=== PATIENT | female | born 1945 | race Caucasian/White ===

== ENCOUNTER 2016-07-08 18:40 | Emergency (ER) | payer OTHER ==
--- NOTE | 2016-07-08 19:34 | DIAGNOSTIC IMAGING REPORT ---
PROCEDURE: CT HEAD WITHOUT CONTRAST INDICATION: Right facial droop and numbness. TECHNIQUE: Noncontrast axial images with sagittal and coronal reformations. COMPARISON: None. FINDINGS: Brain and ventricles are normal. No evidence of an acute process or hemorrhage. Sinuses and mastoids are normal. IMPRESSION: 1. Negative head CT. 2. Findings called to the emergency department for Dr. Shawn Foreman ([address] scans at this facility use dose modulation, iterative reconstruction, and/or weight-based dosing when appropriate to reduce radiation dose to as low as reasonably achievable.
--- NOTE | 2016-07-08 19:37 | DIAGNOSTIC IMAGING REPORT ---
PROCEDURE: XR CHEST 1 VIEW INDICATION: Possible CVA. TECHNIQUE: Portable AP view (19 3 hours). COMPARISON: None. FINDINGS: Allowing for overlying wires and electrodes, lungs are clear. Heart and mediastinum are normal. Thorax is normal. IMPRESSION: 1. Negative chest.
--- NOTE | 2016-07-08 20:47 | ED ORDER SUMMARY ---
..... Patient: HO FREEMAN OrderSheet [facility] VisitID: [id number] [address] [place] [address] 70y, F Registration Date/Time: 07/08/2016 ORDER SHEET Weight: 79.3 kg (stated) Allergies: Amitriptyline HCl, Atenolol, Haldol, Penicillins, Sanctura, Zofran GENERAL ORDERS: CT Head wo Cont Urgent (18:57 07/08/2016 Yari verbal order read back to Kathy GUEVARA) (Ack 18:58 Yari) (19:09 Yari) Chest 1V Urgent (19:24 07/08/2016 Kathy GUEVARA) (Ack 19:27 CHagerty ER Finish Painter) (19:30 CHagerty ER Finish Painter) Furniture Shampooer (Continuous) (19:24 07/08/2016 Kathy GUEVARA) (19:27 CHagerty ER Finish Painter) (19:27 LSullivan R.N.) CBC w Diff Urgent (19:24 07/08/2016 Kathy GUEVARA) (Ack 19:27 CHagerty ER Finish Painter) (20:10 CHagerty ER Finish Painter) CMP Urgent (19:24 07/08/2016 Kathy GUEVARA) (Ack 19:27 CHagerty ER Finish Painter) (20:09 CHagerty ER Finish Painter) UA-Culture if indicated Urgent (19:24 07/08/2016 Kathy GUEVARA) (Ack 19:27 CHagerty ER Finish Painter) (21:07 EInderbitzen R.N.) PT with INR Urgent (19:24 07/08/2016 Kathy GUEVARA) (Ack 19:27 CHagerty ER Finish Painter) (20:09 CHagerty ER Finish Painter) PTT Urgent (19:24 07/08/2016 Kathy GUEVARA) (Ack 19:27 CHagerty ER Finish Painter) (20:09 CHagerty ER Finish Painter) Amylase Urgent (19:24 07/08/2016 Kathy GUEVARA) (Ack 19:27 CHagerty ER Finish Painter) (20:09 CHagerty ER Finish Painter) Lipase Urgent (19:24 07/08/2016 Kathy GUEVARA) (Ack 19:27 CHagerty ER Finish Painter) (20:09 CHagerty ER Finish Painter) CPK Urgent (19:24 07/08/2016 Kathy GUEVARA) (Ack 19:27 CHagerty ER Finish Painter) (20:09 CHagerty ER Finish Painter) Troponin-I Urgent (19:24 07/08/2016 Kathy GUEVARA) (Ack 19:27 CHagerty ER Finish Painter) (20:09 CHagerty ER Finish Painter) Urine Drug Screen Urgent (19:24 07/08/2016 Kathy GUEVARA) (Ack 19:27 CHagerty ER Finish Painter) (21:07 EInderbitzen R.N.) (Cancelled: Other21:07 EInderbitzen R.N.) Oxygen (2 L/min) (NC) (19:24 07/08/2016 Kathy GUEVARA) (19:27 CHagerty ER Finish Painter) Pulse oximeter (19:24 07/08/2016 Kathy GUEVARA) (19:27 CHagerty ER Finish Painter) EKG - ER Stat (19:24 07/08/2016 Kathy GUEVARA) (19:27 CHagerty ER Finish Painter) MEDICATION ORDERS: IV FLUIDS: IV Saline Lock (19:04 07/08/2016 LSullivan R.N. verbal order read back to Kathy GUEVARA) (19:05 LSullivan R.N.) IV Saline Lock (19:07/08/2016 Kathy GUEVARA) (Cancelled: Duplicate Order19:24 Kathy GUEVARA) ORDER SHEET NOTES: [Electronically signed by Shara Zimmerman R.N. (21:08 07/08/2016)] [Electronically signed by Shawn Foreman MD (09:34 07/13/2016)] [Electronically locked/signed by Shara Zimmerman R.N. (21:08 07/08/2016)]
--- NOTE | 2016-07-08 20:47 | ED NURSING NOTES ---
Clinical Report - Nurses [facility] [address] [place] [address] 07/08/2016 18:42 Patient: HO FREEMAN TRIAGE Triage time 18:59. Chief Complaint: FACIAL DROOP and (on right side, pt states she looked in a mirror, and saw more facial droop on right chin area than usual, from her Parkinsons). --19:03 Sheree Carr R.N. 18:58 07/08/16. BP: 147/73. HR: 65. RR: 18. O2 saturation: 98%. Temp: 97.5 F. Pain level now: 010. --19:03 Sheree Carr R.N. Weight: 79.3 kg stated. Height/Length: 64 inches Per Patient. BMI: 30. --18:58 Sheree Carr R.N. Medications Acyclovir Oral 400 mg, q4hrs while awake. Alendronate Sodium Oral 35mg week. ASA Oral 81 mg, daily. Levothyroxine Sodium Oral 25 mcg, daily. Platea Carbonate Oral (Capsule 150 mg) 1 capsule, TID at mealtimes. Lovastatin Oral 20mg , daily. Omeprazole Oral 20 mg, daily. Oxybutynin Chloride Oral 5 mg, 3x a day. ROPINIRole HCl Oral 3 mg each hs. Wellbutrin Oral 300 mg qAM. --19:32 Shara Zimmerman R.N. Allergies Amitriptyline HCl. Atenolol. Haldol. Penicillins. (does not work ) Sanctura. Zofran. --19:01 Sheree Carr R.N. History Arrived by private vehicle. Historian: patient. Primary physician (Navdeep). This started 25 minutes LOCAL SALES ASSOCIATE to hospital. Treatment LOCAL SALES ASSOCIATE: None. SOCIAL HX: Never smoker. No alcohol use or drug use. FUNCTIONAL ASSESSMENT: Functional assessment: no impairments noted. --19:03 Sheree Carr R.N. PROBLEMS: Bipolar Disorder. Chest Pain. Anxiety Reaction. Heart Disease. Parkinson's Disease. --19:02 Sheree Carr R.N. ADDITIONAL SURGERIES: Adenoidectomy. Appendectomy. Cholecystectomy. Knee Surgery. Oophorectomy. Tonsillectomy. --19:02 Sheree Carr R.N. PHYSICAL ASSESSMENT GENERAL / NEURO / PSYCH: Awake. Oriented X 4. Alert. Appears in no acute distress. Speech normal. Mood/affect normal. Moves all extremities equally. No motor deficit. No sensory deficit. --19:03 Sheree Carr R.N. NURSING PROGRESS NOTES Patient transported to CT by stretcher with tech. (19:03). --19:03 Sheree Carr R.N. 19:04 07/08/2016 Site #1 started via IV in the right antecubital space with an 20g angiocath, with aseptic technique and good blood return; one attempt. Blood drawn: rainbow set. Labeled in the presence of the patient and sent to the lab. Saline lock flushed with 10 mL saline. --19:05 Sheree Carr R.N. 19:05. patient monitor, pulse oximeter and NIBP monitor placed on patient; manager cardiac- Lead II and V1; monitor alarms on. --19:28 Sheree Carr R.N. 19:31 07/08/16. Portable chest x-ray performed. --19:31 Shara Zimmerman R.N. EKG time: (19:40 Jul 08 2016). EKG was performed by a tech and shown to the ED physician. --19:42 Rolando Pantoja 19:45 07/08/16. Cardiac rhythm: normal sinus rhythm. Patient waiting for lab, radiology and CT results. --19:45 Shara Zimmerman R.N. 19:45 07/08/16. BP: 131/65. HR: 63. RR: 18. O2 saturation: 100%. Pain level now 0/10. --19:45 Shara Zimmerman R.N. 20:37 07/08/16. ( MD in to review all test results with patient). --20:37 Shara Zimmerman R.N. DISPOSITION / DISCHARGE 20:49 07/08/2016 Site #1 removed upon discharge. Catheter intact. Bandage applied. --20:49 Shara Zimmerman R.N. 20:49 07/08/16. Cardiac rhythm: normal sinus rhythm. Condition at departure: improved and stable. The goals identified in the patient's plan of care were met. FALL RISK ASSESSMENT: Fall risk assessment completed. No fall risk identified. --20:49 Shara Zimmerman R.N. 20:49 07/08/16. BP: 151/71. HR: 88. RR: 16. O2 saturation: 100%. Temp: 98.0 F. Pain level now 0/10. --20:49 Shara Zimmerman R.N. 21:07 07/08/16. No learning barriers present. Discharge instructions provided and reviewed with the patient. Reviewed medication(s) side effects, precautions, dosing and course information. Prescription(s) given to the patient. Reviewed referral to a primary care physician for followup. Summary of care provided to patient via paper. The patient was discharged home and accompanied by family. She left the Emergency Department ambulatory and via private vehicle. Family member driving. --21:07 Shara Zimmerman R.N. Departure time: 21:Jul 08 2016. --21:07 Shara Zimmerman R.N. Locked/Released at 07/08/2016 21:07 by Shara Zimmerman R.N.
--- NOTE | 2016-07-08 20:47 | ED CLINICAL REPORT ---
Clinical Report - Physicians/Mid Levels [facility] [address] [place] [address] 07/08/2016 18:42 Patient: HO FREEMAN Time Seen: 19:07. Arrived- By ambulance. Historian- patient and EMS personnel. HISTORY OF PRESENT ILLNESS Chief Complaint: FACIAL DROOP. No weakness, numbness, tingling or impaired speech or swallowing. No visual disturbance or recent fall. No difficulty walking. This started today and is still present. It was gradual in onset and has been constant. No dizziness or altered mental status. Usually is alert and oriented X3 and has normal mobility. (She has had right upper dental pain for several days. Her family and friends feel thatshe does not have facial droop so much as swelling of her face.). REVIEW OF SYSTEMS No chills, fever, sweats, calf pain or chest pain. No cough, difficulty breathing, pedal edema, palpitations or abdominal pain. No constipation, diarrhea, nausea, vomiting or urinary problems. No alteration in mental status, head injury, numbness or weakness. No difficulty walking. All systems otherwise negative, except as recorded above. PAST HISTORY Problems: Bipolar Disorder. Chest Pain. Anxiety Reaction. Heart Disease. Parkinson's Disease. Additional Surgeries: Adenoidectomy. Appendectomy. Cholecystectomy. Knee Surgery. Oophorectomy. Tonsillectomy. Medications: Acyclovir Oral 400 mg, q4hrs while awake. Alendronate Sodium Oral 35mg week. ASA Oral 81 mg, daily. Levothyroxine Sodium Oral 25 mcg, daily. Gaastra Carbonate Oral (Capsule 150 mg) 1 capsule, TID at mealtimes. Lovastatin Oral 20mg , daily. Omeprazole Oral 20 mg, daily. Oxybutynin Chloride Oral 5 mg, 3x a day. ROPINIRole HCl Oral 3 mg each hs. Wellbutrin Oral 300 mg qAM. Allergies: Amitriptyline HCl. Atenolol. Haldol. Penicillins. (does not work ) Sanctura. Zofran. SOCIAL HISTORY Never smoker. No alcohol use or drug use. FAMILY HISTORY Denies family medical history. ADDITIONAL NOTES The nursing notes have been reviewed. PHYSICAL EXAM Vital Signs: 07/08/2016 18:58 BP: 147/73. HR: 65. RR: 18. O2 saturation: 98%. Temp: 97.5 F. Pain level now: 0/10. Appearance: Alert. No acute distress. Head: Right cheek: mild swelling. Eyes: Pupils equal, round and reactive to light. ENT: Moderate dental decay with gingival tenderness, induration and swelling (upper right premolars). No gingival fluctuance. Pharynx normal. (exophthalmos). Neck: Normal inspection. Neck supple. No meningeal signs or carotid bruit. CVS: Normal heart rate and rhythm. Heart sounds normal. Respiratory: No respiratory distress. Breath sounds normal. Abdomen: Soft and nontender. No organomegaly. Back: Normal inspection. No CVA tenderness. Skin: Skin warm and dry. Normal skin color. No rash. Normal skin turgor. Extremities: Extremities exhibit normal ROM. No calf tenderness. No lower extremity edema. Neuro: Alert. Oriented X 3. Speech normal. Cranial nerves normal (as tested). No cerebellar findings. (cogwheel rigidity). LABS, X-RAYS, AND EKG EKG: No acute process. Rate: 63. EKG unchanged when compared with prior EKG. (13 Aug 2013). Chest X-ray: Normal Chest X-Ray. CT Head: No acute changes. The study was interpreted contemporaneously by me and discussed with the radiologist. Laboratory Tests: CBC w Diff: (LYDIA: 07/08/2016 18:40) ( MsgRcvd 07/08/2016 19:40) Final results Test Result Flag Units (Reference) WHITE BLOOD COUNT 7.2 K/uL (4.5-11.5) RED BLOOD COUNT 4.36 M/uL (4.00-5.20) HEMOGLOBIN 13.2 gm/dL (12.0-16.0) HEMATOCRIT 39.4 % (36.0-46.0) MEAN CELL VOLUME 90 fL (80-100) MEAN CORPUSCULAR HGB 30 pg (26-34) MEAN CORPUSCULAR HGB CONC 34 g/dL (31-37) RED CELL DISTRIBUTION WIDTH 13.3 % (11.6-14.8) PLATELET COUNT 290 K/uL (150-400) NEUTROPHIL % 65.3 % (50-75) LYMPH % 23.0 L % (25-40) MONO % 7.5 % (3-14) EOSINOPHIL % 2.2 % (0-4) BASOPHIL % 2.0 % (0-2) PT with INR: (LYDIA: 07/08/2016 18:40) ( [facility] Final results Test Result Flag Units (Reference) INR 0.9 (0.8-1.2) Low Intensity Therapy: INR 1.5-2.0 PT range 18.5-23.1Mod.Intensity Therapy: INR 2.0-3.0 PT range 23.1-31.5High Intensity Therapy: INR 2.5-3.5 PT range 27.4-35.5High Intensity Therapy 2: INR 3.0-4.0 PT range 31.5-39.3 APTT 30 SECONDS (24-34) CMP: (LYDIA: 07/08/2016 18:40) ( [facility] [place] 19:49) Final results Test Result Flag Units (Reference) GLUCOSE 94 mg/dL (70-110) BUN 23 H mg/dL (7-18) CREATININE 0.9 mg/dL (0.6-1.3) Estimated GFR >60 mL/min Estimated GFR- >60 mL/min Note: Persistent reduction over 3 months in eGFR<60 mL/min/1.73 m2 defines CKD. Patients with eGFR values>=60 mL/min/1.73 m2 may also have CKD if evidence ofpersistent proteinuria. Additional information may be foundat www.kidney.org. SODIUM 140 mmol/L (136-145) POTASSIUM 4.7 mmol/L (3.5-5.1) CHLORIDE 102 mmol/L (98-107) CARBON DIOXIDE 31 mmol/L (21-32) CALCIUM 9.3 mg/dL (8.5-10.1) TOTAL PROTEIN 7.0 g/dL (6.4-8.2) ALBUMIN 3.5 g/dL (3.3-5.0) BILIRUBIN, TOTAL 0.6 mg/dL (0.0-1.0) ALKALINE PHOSPHATASE 96 U/L (46-116) AST (SGOT) 23 U/L (15-37) ALT (SGPT) 35 U/L (12-78) LIPASE 160 U/L (73-393) AMYLASE 56 U/L (25-115) CPK 68 U/L (24-260) TROPONIN I <0.05 ng/mL (0.00-1.5) TROPONIN REFERENCE RANGE:<0.1 NEGATIVE0.1-1.5 INDETERMINANT>1.5 POSITIVE . CLINICAL IMPRESSION Mild dental pain (with facial swelling). INSTRUCTIONS Warnings: Further evaluation is necessary. GENERAL WARNINGS: Return or contact your physician immediately if your condition worsens or changes unexpectedly, if not improving as expected, or if other problems arise. Your Current Medications: CONTINUE TAKING THE FOLLOWING MEDICATIONS: Acyclovir Oral : 400 mg q4hrs while awake. Alendronate Sodium Oral : 35mg week. ASA Oral : 81 mg daily. Levothyroxine Sodium Oral : 25 mcg daily. Gaastra Carbonate Oral : Capsule 150 mg, 1 capsule TID at mealtimes. Lovastatin Oral : 20mg daily. Omeprazole Oral : 20 mg daily. Oxybutynin Chloride Oral : 5 mg 3x a day. ROPINIRole HCl Oral : 3 mg each hs. Wellbutrin Oral : 300 mg qAM. Prescription Medications: Clindamycin 300 mg: take 1 capsule orally every 6 hours for 7 days. No refills. OTC Medications: Aspirin 325 mg (available over the counter): take 1 orally every 24 hours. Dispense thirty (30). No refills. Follow-up: Follow up with your doctor in five days. Call for the next available appointment. Follow up with a dentist. Call for the next available appointment. Understanding of the discharge instructions verbalized by patient. (Electronically signed by Shawn Foreman MD 07/13/2016 9:34)
--- NOTE | 2016-07-08 20:47 | ED ORDER SUMMARY ---
..... Patient: HO FREEMAN OrderSheet [facility] VisitID: [id number] [address] [place] [address] 70y, F Registration Date/Time: 07/08/2016 ORDER SHEET Weight: 79.3 kg (stated) Allergies: Amitriptyline HCl, Atenolol, Haldol, Penicillins, Sanctura, Zofran GENERAL ORDERS: CT Head wo Cont Urgent (18:57 07/08/2016 Yari verbal order read back to Kathy GUEVARA) (Ack 18:58 Yari) (19:09 Yari) Chest 1V Urgent (19:24 07/08/2016 Kathy GUEVARA) (Ack 19:27 CHagerty ER Field Operations Farm Manager) (19:30 CHagerty ER Field Operations Farm Manager) Sail Cutter (Continuous) (19:24 07/08/2016 Kathy GUEVARA) (19:27 CHagerty ER Field Operations Farm Manager) (19:27 LSullivan R.N.) CBC w Diff Urgent (19:24 07/08/2016 Kathy GUEVARA) (Ack 19:27 CHagerty ER Field Operations Farm Manager) (20:10 CHagerty ER Field Operations Farm Manager) CMP Urgent (19:24 07/08/2016 Kathy GUEVARA) (Ack 19:27 CHagerty ER Field Operations Farm Manager) (20:09 CHagerty ER Field Operations Farm Manager) UA-Culture if indicated Urgent (19:24 07/08/2016 Kathy GUEVARA) (Ack 19:27 CHagerty ER Field Operations Farm Manager) (21:07 EInderbitzen R.N.) PT with INR Urgent (19:24 07/08/2016 Kathy GUEVARA) (Ack 19:27 CHagerty ER Field Operations Farm Manager) (20:09 CHagerty ER Field Operations Farm Manager) PTT Urgent (19:24 07/08/2016 Kathy GUEVARA) (Ack 19:27 CHagerty ER Field Operations Farm Manager) (20:09 CHagerty ER Field Operations Farm Manager) Amylase Urgent (19:24 07/08/2016 Kathy GUEVARA) (Ack 19:27 CHagerty ER Field Operations Farm Manager) (20:09 CHagerty ER Field Operations Farm Manager) Lipase Urgent (19:24 07/08/2016 Kathy GUEVARA) (Ack 19:27 CHagerty ER Field Operations Farm Manager) (20:09 CHagerty ER Field Operations Farm Manager) CPK Urgent (19:24 07/08/2016 Kathy GUEVARA) (Ack 19:27 CHagerty ER Field Operations Farm Manager) (20:09 CHagerty ER Field Operations Farm Manager) Troponin-I Urgent (19:24 07/08/2016 Kathy GUEVARA) (Ack 19:27 CHagerty ER Field Operations Farm Manager) (20:09 CHagerty ER Field Operations Farm Manager) Urine Drug Screen Urgent (19:24 07/08/2016 Kathy GUEVARA) (Ack 19:27 CHagerty ER Field Operations Farm Manager) (21:07 EInderbitzen R.N.) (Cancelled: Other21:07 EInderbitzen R.N.) Oxygen (2 L/min) (NC) (19:24 07/08/2016 Kathy GUEVARA) (19:27 CHagerty ER Field Operations Farm Manager) Pulse oximeter (19:24 07/08/2016 Kathy GUEVARA) (19:27 CHagerty ER Field Operations Farm Manager) EKG - ER Stat (19:24 07/08/2016 Kathy GUEVARA) (19:27 CHagerty ER Field Operations Farm Manager) MEDICATION ORDERS: IV FLUIDS: IV Saline Lock (19:04 07/08/2016 LSullivan R.N. verbal order read back to Kathy GUEVARA) (19:05 LSullivan R.N.) IV Saline Lock (19:07/08/2016 Kathy GUEVARA) (Cancelled: Duplicate Order19:24 Kathy GUEVARA) ORDER SHEET NOTES: [Electronically signed by Shara Zimmerman R.N. (21:08 07/08/2016)] [Electronically signed by Shawn Foreman MD (09:34 07/13/2016)] [Electronically locked/signed by Shara Zimmerman R.N. (21:08 07/08/2016)]
--- NOTE | 2016-07-08 20:47 | ED CLINICAL REPORT ---
Clinical Report - Physicians/Mid Levels [facility] [address] [place] [address] 07/08/2016 18:42 Patient: HO FREEMAN Time Seen: 19:07. Arrived- By ambulance. Historian- patient and EMS personnel. HISTORY OF PRESENT ILLNESS Chief Complaint: FACIAL DROOP. No weakness, numbness, tingling or impaired speech or swallowing. No visual disturbance or recent fall. No difficulty walking. This started today and is still present. It was gradual in onset and has been constant. No dizziness or altered mental status. Usually is alert and oriented X3 and has normal mobility. (She has had right upper dental pain for several days. Her family and friends feel thatshe does not have facial droop so much as swelling of her face.). REVIEW OF SYSTEMS No chills, fever, sweats, calf pain or chest pain. No cough, difficulty breathing, pedal edema, palpitations or abdominal pain. No constipation, diarrhea, nausea, vomiting or urinary problems. No alteration in mental status, head injury, numbness or weakness. No difficulty walking. All systems otherwise negative, except as recorded above. PAST HISTORY Problems: Bipolar Disorder. Chest Pain. Anxiety Reaction. Heart Disease. Parkinson's Disease. Additional Surgeries: Adenoidectomy. Appendectomy. Cholecystectomy. Knee Surgery. Oophorectomy. Tonsillectomy. Medications: Acyclovir Oral 400 mg, q4hrs while awake. Alendronate Sodium Oral 35mg week. ASA Oral 81 mg, daily. Levothyroxine Sodium Oral 25 mcg, daily. [place] Carbonate Oral (Capsule 150 mg) 1 capsule, TID at mealtimes. Lovastatin Oral 20mg , daily. Omeprazole Oral 20 mg, daily. Oxybutynin Chloride Oral 5 mg, 3x a day. ROPINIRole HCl Oral 3 mg each hs. Wellbutrin Oral 300 mg qAM. Allergies: Amitriptyline HCl. Atenolol. Haldol. Penicillins. (does not work ) Sanctura. Zofran. SOCIAL HISTORY Never smoker. No alcohol use or drug use. FAMILY HISTORY Denies family medical history. ADDITIONAL NOTES The nursing notes have been reviewed. PHYSICAL EXAM Vital Signs: 07/08/2016 18:58 BP: 147/73. HR: 65. RR: 18. O2 saturation: 98%. Temp: 97.5 F. Pain level now: 0/10. Appearance: Alert. No acute distress. Head: Right cheek: mild swelling. Eyes: Pupils equal, round and reactive to light. ENT: Moderate dental decay with gingival tenderness, induration and swelling (upper right premolars). No gingival fluctuance. Pharynx normal. (exophthalmos). Neck: Normal inspection. Neck supple. No meningeal signs or carotid bruit. CVS: Normal heart rate and rhythm. Heart sounds normal. Respiratory: No respiratory distress. Breath sounds normal. Abdomen: Soft and nontender. No organomegaly. Back: Normal inspection. No CVA tenderness. Skin: Skin warm and dry. Normal skin color. No rash. Normal skin turgor. Extremities: Extremities exhibit normal ROM. No calf tenderness. No lower extremity edema. Neuro: Alert. Oriented X 3. Speech normal. Cranial nerves normal (as tested). No cerebellar findings. (cogwheel rigidity). LABS, X-RAYS, AND EKG EKG: No acute process. Rate: 63. EKG unchanged when compared with prior EKG. (13 Aug 2013). Chest X-ray: Normal Chest X-Ray. CT Head: No acute changes. The study was interpreted contemporaneously by me and discussed with the radiologist. Laboratory Tests: CBC w Diff: (LYDAI: 07/08/2016 18:40) ( MsgRcvd 07/08/2016 19:40) Final results Test Result Flag Units (Reference) WHITE BLOOD COUNT 7.2 K/uL (4.5-11.5) RED BLOOD COUNT 4.36 M/uL (4.00-5.20) HEMOGLOBIN 13.2 gm/dL (12.0-16.0) HEMATOCRIT 39.4 % (36.0-46.0) MEAN CELL VOLUME 90 fL (80-100) MEAN CORPUSCULAR HGB 30 pg (26-34) MEAN CORPUSCULAR HGB CONC 34 g/dL (31-37) RED CELL DISTRIBUTION WIDTH 13.3 % (11.6-14.8) PLATELET COUNT 290 K/uL (150-400) NEUTROPHIL % 65.3 % (50-75) LYMPH % 23.0 L % (25-40) MONO % 7.5 % (3-14) EOSINOPHIL % 2.2 % (0-4) BASOPHIL % 2.0 % (0-2) PT with INR: (LYDIA: 07/08/2016 18:40) ( [facility] Final results Test Result Flag Units (Reference) INR 0.9 (0.8-1.2) Low Intensity Therapy: INR 1.5-2.0 PT range 18.5-23.1Mod.Intensity Therapy: INR 2.0-3.0 PT range 23.1-31.5High Intensity Therapy: INR 2.5-3.5 PT range 27.4-35.5High Intensity Therapy 2: INR 3.0-4.0 PT range 31.5-39.3 APTT 30 SECONDS (24-34) CMP: (LYDIA: 07/08/2016 18:40) ( [facility] 07/08/2016 19:49) Final results Test Result Flag Units (Reference) GLUCOSE 94 mg/dL (70-110) BUN 23 H mg/dL (7-18) CREATININE 0.9 mg/dL (0.6-1.3) Estimated GFR >60 mL/min Estimated GFR- >60 mL/min Note: Persistent reduction over 3 months in eGFR<60 mL/min/1.73 m2 defines CKD. Patients with eGFR values>=60 mL/min/1.73 m2 may also have CKD if evidence ofpersistent proteinuria. Additional information may be foundat www.[email or web address].org. SODIUM 140 mmol/L (136-145) POTASSIUM 4.7 mmol/L (3.5-5.1) CHLORIDE 102 mmol/L (98-107) CARBON DIOXIDE 31 mmol/L (21-32) CALCIUM 9.3 mg/dL (8.5-10.1) TOTAL PROTEIN 7.0 g/dL (6.4-8.2) ALBUMIN 3.5 g/dL (3.3-5.0) BILIRUBIN, TOTAL 0.6 mg/dL (0.0-1.0) ALKALINE PHOSPHATASE 96 U/L (46-116) AST (SGOT) 23 U/L (15-37) ALT (SGPT) 35 U/L (12-78) LIPASE 160 U/L (73-393) AMYLASE 56 U/L (25-115) CPK 68 U/L (24-260) TROPONIN I <0.05 ng/mL (0.00-1.5) TROPONIN REFERENCE RANGE:<0.1 NEGATIVE0.1-1.5 INDETERMINANT>1.5 POSITIVE . CLINICAL IMPRESSION Mild dental pain (with facial swelling). INSTRUCTIONS Warnings: Further evaluation is necessary. GENERAL WARNINGS: Return or contact your physician immediately if your condition worsens or changes unexpectedly, if not improving as expected, or if other problems arise. Your Current Medications: CONTINUE TAKING THE FOLLOWING MEDICATIONS: Acyclovir Oral : 400 mg q4hrs while awake. Alendronate Sodium Oral : 35mg week. ASA Oral : 81 mg daily. Levothyroxine Sodium Oral : 25 mcg daily. [place] Carbonate Oral : Capsule 150 mg, 1 capsule TID at mealtimes. Lovastatin Oral : 20mg daily. Omeprazole Oral : 20 mg daily. Oxybutynin Chloride Oral : 5 mg 3x a day. ROPINIRole HCl Oral : 3 mg each hs. Wellbutrin Oral : 300 mg qAM. Prescription Medications: Clindamycin 300 mg: take 1 capsule orally every 6 hours for 7 days. No refills. OTC Medications: Aspirin 325 mg (available over the counter): take 1 orally every 24 hours. Dispense thirty (30). No refills. Follow-up: Follow up with your doctor in five days. Call for the next available appointment. Follow up with a dentist. Call for the next available appointment. Understanding of the discharge instructions verbalized by patient. (Electronically signed by Shawn Foreman MD 07/13/2016 9:34)
--- NOTE | 2016-07-08 20:47 | ED NURSING NOTES ---
Clinical Report - Nurses [facility] [address] [place] [address] 07/08/2016 18:42 Patient: HO FREEMAN TRIAGE Triage time 18:59. Chief Complaint: FACIAL DROOP and (on right side, pt states she looked in a mirror, and saw more facial droop on right chin area than usual, from her Parkinsons). --19:03 Sheree Carr R.N. 18:58 07/08/16. BP: 147/73. HR: 65. RR: 18. O2 saturation: 98%. Temp: 97.5 F. Pain level now: 010. --19:03 Sheree Carr R.N. Weight: 79.3 kg stated. Height/Length: 64 inches Per Patient. BMI: 30. --18:58 Sheree Carr R.N. Medications Acyclovir Oral 400 mg, q4hrs while awake. Alendronate Sodium Oral 35mg week. ASA Oral 81 mg, daily. Levothyroxine Sodium Oral 25 mcg, daily. [place] Carbonate Oral (Capsule 150 mg) 1 capsule, TID at mealtimes. Lovastatin Oral 20mg , daily. Omeprazole Oral 20 mg, daily. Oxybutynin Chloride Oral 5 mg, 3x a day. ROPINIRole HCl Oral 3 mg each hs. Wellbutrin Oral 300 mg qAM. --19:32 Shara Zimmerman R.N. Allergies Amitriptyline HCl. Atenolol. Haldol. Penicillins. (does not work ) Sanctura. Zofran. --19:01 Sheree Carr R.N. History Arrived by private vehicle. Historian: patient. Primary physician ([facility]). 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 Treatment LEAD TANK MECHANIC: None. SOCIAL HX: Never smoker. No alcohol use or drug use. FUNCTIONAL ASSESSMENT: Functional assessment: no impairments noted. --19:03 Sheree Carr R.N. PROBLEMS: Bipolar Disorder. Chest Pain. Anxiety Reaction. Heart Disease. Parkinson's Disease. --19:02 Sheree aCrr R.N. ADDITIONAL SURGERIES: Adenoidectomy. Appendectomy. Cholecystectomy. Knee Surgery. Oophorectomy. Tonsillectomy. --19:02 Sheree Carr R.N. PHYSICAL ASSESSMENT GENERAL / NEURO / PSYCH: Awake. Oriented X 4. Alert. Appears in no acute distress. Speech normal. Mood/affect normal. Moves all extremities equally. No motor deficit. No sensory deficit. --19:03 Sheree Carr R.N. NURSING PROGRESS NOTES Patient transported to CT by stretcher with tech. (19:03). --19:03 Sheree Carr R.N. 19:04 07/08/2016 Site #1 started via IV in the right antecubital space with an 20g angiocath, with aseptic technique and good blood return; one attempt. Blood drawn: rainbow set. Labeled in the presence of the patient and sent to the lab. Saline lock flushed with 10 mL saline. --19:05 Sheree Carr R.N. 19:05. insert molding operator, pulse oximeter and NIBP monitor placed on patient; rn assessment- Lead II and V1; monitor alarms on. --19:28 Sheree Carr R.N. 19:31 07/08/16. Portable chest x-ray performed. --19:31 Shara Zimmerman R.N. EKG time: (19:40 Jul 08 2016). EKG was performed by a tech and shown to the ED physician. --19:42 Rolando Pantoja 19:45 07/08/16. Cardiac rhythm: normal sinus rhythm. Patient waiting for lab, radiology and CT results. --19:45 Shara Zimmerman R.N. 19:45 07/08/16. BP: 131/65. HR: 63. RR: 18. O2 saturation: 100%. Pain level now 0/10. --19:45 Shara Zimmerman R.N. 20:37 07/08/16. ( MD in to review all test results with patient). --20:37 Shara Zimmerman R.N. DISPOSITION / DISCHARGE 20:49 07/08/2016 Site #1 removed upon discharge. Catheter intact. Bandage applied. --20:49 Shara Zimmerman R.N. 20:49 07/08/16. Cardiac rhythm: normal sinus rhythm. Condition at departure: improved and stable. The goals identified in the patient's plan of care were met. FALL RISK ASSESSMENT: Fall risk assessment completed. No fall risk identified. --20:49 Shara Zimmerman R.N. 20:49 07/08/16. BP: 151/71. HR: 88. RR: 16. O2 saturation: 100%. Temp: 98.0 F. Pain level now 0/10. --20:49 Shara Zimmerman R.N. 21:07 07/08/16. No learning barriers present. Discharge instructions provided and reviewed with the patient. Reviewed medication(s) side effects, precautions, dosing and course information. Prescription(s) given to the patient. Reviewed referral to a primary care physician for followup. Summary of care provided to patient via paper. The patient was discharged home and accompanied by family. She left the Emergency Department ambulatory and via private vehicle. Family member driving. --21:07 Shara Zimmerman R.N. Departure time: 21:Jul 08 2016. --21:07 Shara Zimmerman R.N. Locked/Released at 07/08/2016 21:07 by Shara Zimmerman R.N.
--- NOTE | 2016-07-13 09:35 | ED MED RECONCILIATION SUMMARY ---
Patient: HO FREEMAN Medication Reconciliation Report [facility] VisitID: [id number] [address] [place] [address] 70y, F Registration Date/Time: 07/08/2016 Weight: 79.3 kg Height/Length: 64 in. BMI: 30.0 ALLERGIES: Amitriptyline HCl, Atenolol, Haldol, Penicillins, Sanctura, Zofran The patient's Home Medications are listed below: CONTINUE TAKING THE FOLLOWING MEDICATIONS: Acyclovir Oral 400 mg, q4hrs while awake Alendronate Sodium Oral 35mg week ASA Oral 81 mg, daily Levothyroxine Sodium Oral 25 mcg, daily [place] Carbonate Oral (150 mg) 1 capsule, TID at mealtimes Lovastatin Oral 20mg , daily Omeprazole Oral 20 mg, daily Oxybutynin Chloride Oral 5 mg, 3x a day ROPINIRole HCl Oral 3 mg each hs Wellbutrin Oral 300 mg qAM The source(s) of the original Home Medication information: Not obtained. The following Medications were given to the patient in the Emergency Department: None. The following Medications were prescribed to the patient: Aspirin 325 mg (available over the counter): take 1 orally every 24 hours. Dispense thirty (30). No refills. -- Shawn Foreman MD Clindamycin 300 mg: take 1 capsule orally every 6 hours for 7 days. No refills. -- Shawn Foreman MD
--- NOTE | 2016-07-13 09:35 | ED MAR SUMMARY ---
..... Medication Administration Record [facility] [address] [place], [place] [id number] Patient: HO FREEMAN Visit ID: [id number] 70y, F Weight: 79.3 kg Height/Length: 64 in BMI: 30 ALLERGIES: Amitriptyline HCl, Atenolol, Haldol, Penicillins, Sanctura, Zofran
--- NOTE | 2016-07-13 09:35 | ED DISCHARGE INSTRUCTIONS ---
Patient: HO FREEMAN General Instructions [facility] VisitID: [id number] [address] [place] [address] 70y, F Registration Date/Time: 07/08/2016 Mild dental pain (with facial swelling). INSTRUCTIONS Warnings: Further evaluation is necessary. GENERAL WARNINGS: Return or contact your physician immediately if your condition worsens or changes unexpectedly, if not improving as expected, or if other problems arise. Your Current Medications: CONTINUE TAKING THE FOLLOWING MEDICATIONS: Acyclovir Oral : 400 mg q4hrs while awake. Alendronate Sodium Oral : 35mg week. ASA Oral : 81 mg daily. Levothyroxine Sodium Oral : 25 mcg daily. [place] Carbonate Oral : Capsule 150 mg, 1 capsule TID at mealtimes. Lovastatin Oral : 20mg daily. Omeprazole Oral : 20 mg daily. Oxybutynin Chloride Oral : 5 mg 3x a day. ROPINIRole HCl Oral : 3 mg each hs. Wellbutrin Oral : 300 mg qAM. Prescription Medications: Clindamycin 300 mg: take 1 capsule orally every 6 hours for 7 days. No refills. OTC Medications: Aspirin 325 mg (available over the counter): take 1 orally every 24 hours. Dispense thirty (30). No refills. Follow-up: Follow up with your doctor in five days. Call for the next available appointment. Follow up with a dentist. Call for the next available appointment. Understanding of the discharge instructions verbalized by patient. ADDITIONAL INFORMATION Dental Pain A crack or cavity in the tooth, which exposes the sensitive inner area of the tooth can cause tooth pain. An infection in the gum or the root of the tooth can cause pain and swelling. The pain is often made worse by drinking hot or cold fluids, or biting on hard foods. Pain may spread from the tooth to the ear or jaw on the same side. Home Care: Avoid hot and cold foods and liquids since your tooth may be sensitive to temperature changes. If your tooth is chipped or cracked, or if there is a large open cavity, apply OIL OF CLOVES (available hxkq-tsy-[id number] in drug stores) directly to the tooth to reduce pain. Some pharmacies carry an [id number] "toothache kit." This contains a paste, which can be applied over the exposed tooth to decrease sensitivity. A cold pack on your jaw over the sore area may help reduce pain. You may use acetaminophen (Tylenol) or ibuprofen (Motrin, Advil) to control pain, unless another medicine was prescribed. [ NOTE: If you have chronic liver or kidney disease or ever had a stomach ulcer or GI bleeding, talk with your doctor before using these medicines.] If you have signs of an infection, an antibiotic will be given. Take it as directed. Follow-Up as directed with a dentist. Your pain may go away with the treatment given. However, only a dentist can fully evaluate and treat the cause and prevent the pain from coming back again. TOOTHACHE IS A SIGN OF DISEASE IN YOUR TOOTH AND SHOULD BE EXAMINED AND TREATED BY A DENTIST. Get Prompt Medical Attention if any of the following occur: Your face becomes swollen or red Pain worsens or spreads to the neck Fever over 100.4 F (38.0 C) Unusual drowsiness; headache or stiff neck; weakness or fainting Pus drains from the tooth Difficulty swallowing or breathing Clindamycin Hydrochloride Oral capsule What is this medicine? CLINDAMYCIN (KLIN da MYSmiley sin) is a lincosamide antibiotic. It is used to treat certain kinds of bacterial infections. It will not work for colds, flu, or other viral infections. How should I use this medicine? Take this medicine by mouth with a full glass of water. Follow the directions on the prescription label. You can take this medicine with food or on an empty stomach. If the medicine upsets your stomach, take it with food. Take your medicine at regular intervals. Do not take your medicine more often than directed. Take all of your medicine as directed even if you think your are better. Do not skip doses or stop your medicine early. Talk to your semiconductor wafer inspector regarding the use of this medicine in children. Special care may be needed. What side effects may I notice from receiving this medicine? Side effects that you should report to your doctor or health acute care assistant as soon as possible: allergic reactions like skin rash, itching or hives, swelling of the face, lips, or tongue dark urine pain on swallowing redness, blistering, peeling or loosening of the skin, including inside the mouth unusual bleeding or bruising unusually weak or tired yellowing of eyes or skin Side effects that usually do not require medical attention (report to your doctor or health acute care assistant if they continue or are bothersome): diarrhea itching in the rectal or genital area joint pain nausea, vomiting stomach pain What may interact with this medicine? chloramphenicol erythromycin kaolin products What if I miss a dose? If you miss a dose, take it as soon as you can. If it is almost time for your next dose, take only that dose. Do not take double or extra doses. Where should I keep my medicine? Keep out of the reach of children. Store at room temperature between 20 and 25 degrees C (68 and 77 degrees F). Throw away any unused medicine after the expiration date. What should I tell my health care provider before I take this medicine? They need to know if you have any of these conditions: kidney disease liver disease stomach problems like colitis an unusual or allergic reaction to clindamycin, lincomycin, or other medicines, foods, dyes like tartrazine or preservatives or trying to get breast-feeding What should I watch for while using this medicine? Tell your doctor or healthcare professional if your symptoms do not start to get better or if they get worse. Do not treat diarrhea with over the counter products. Contact your doctor if you have diarrhea that lasts more than 2 days or if it is severe and watery. Aspirin Oral tablet What is this medicine? ASPIRIN ( pir in) is a pain reliever. It is used to treat mild pain and fever. This medicine is also used as directed by a doctor to prevent and to treat heart attacks, to prevent strokes, and to treat arthritis or inflammation. How should I use this medicine? Take this medicine by mouth with a glass of water. Follow the directions on the package or prescription label. You can take this medicine with or without food. If it upsets your stomach, take it with food. Do not take your medicine more often than directed. Talk to your semiconductor wafer inspector regarding the use of this medicine in children. While this drug may be prescribed for children as young as 12 years of age for selected conditions, precautions do apply. Children and teenagers should not use this medicine to treat chicken pox or flu symptoms unless directed by a doctor. Patients over 65 years old may have a stronger reaction and need a smaller dose. What side effects may I notice from receiving this medicine? Side effects that you should report to your doctor or health acute care assistant as soon as possible: allergic reactions like skin rash, itching or hives, swelling of the face, lips, or tongue breathing problems changes in hearing, ringing in the ears confusion general ill feeling or flu-like symptoms pain on swallowing redness, blistering, peeling or loosening of the skin, including inside the mouth or nose signs and symptoms of bleeding such as bloody or black, tarry stools; red or dark-brown urine; spitting up blood or brown material that looks like coffee grounds; red spots on the skin; unusual bruising or bleeding from the eye, gums, or nose trouble passing urine or change in the amount of urine unusually weak or tired yellowing of the eyes or skin Side effects that usually do not require medical attention (report to your doctor or health acute care assistant if they continue or are bothersome): diarrhea or constipation nausea, vomiting stomach gas, heartburn What may interact with this medicine? Do not take this medicine with any of the following medications: cidofovir ketorolac probenecid This medicine may also interact with the following medications: alcohol alendronate bismuth subsalicylate flavocoxid herbal supplements like feverfew, garlic, hortencia, ginkgo biloba, horse chestnut medicines for diabetes or glaucoma like acetazolamide, methazolamide medicines for gout medicines that treat or prevent blood clots like enoxaparin, heparin, ticlopidine, warfarin other aspirin and aspirin-like medicines NSAIDs, medicines for pain and inflammation, like ibuprofen or naproxen pemetrexed sulfinpyrazone varicella live vaccine What if I miss a dose? If you are taking this medicine on a regular schedule and miss a dose, take it as soon as you can. If it is almost time for your next dose, take only that dose. Do not take double or extra doses. Where should I keep my medicine? Keep out of the reach of children. Store at room temperature between 15 and 30 degrees C (59 and 86 degrees F). Protect from heat and moisture. Do not use this medicine if it has a strong vinegar smell. Throw away any unused medicine after the expiration date. What should I tell my health care provider before I take this medicine? They need to know if you have any of these conditions: anemia asthma bleeding problems child with chickenpox, the flu, or other viral infection diabetes gout if you frequently drink alcohol containing drinks kidney disease liver disease low level of vitamin K lupus smoke tobacco stomach ulcers or other problems an unusual or allergic reaction to aspirin, tartrazine dye, other medicines, dyes, or preservatives or trying to get breast-feeding What should I watch for while using this medicine? If you are treating yourself for pain, tell your doctor or health acute care assistant if the pain lasts more than 10 days, if it gets worse, or if there is a new or different kind of pain. Tell your doctor if you see redness or swelling. Also, check with your doctor if you have a fever that lasts for more than 3 days. Only take this medicine to prevent heart attacks or blood clotting if prescribed by your doctor or health acute care assistant. Do not take aspirin or aspirin-like medicines with this medicine. Too much aspirin can be dangerous. Always read the labels carefully. This medicine can irritate your stomach or cause bleeding problems. Do not smoke cigarettes or drink alcohol while taking this medicine. Do not lie down for 30 minutes after taking this medicine to prevent irritation to your throat. If you are scheduled for any medical or dental procedure, tell your healthcare provider that you are taking this medicine. You may need to stop taking this medicine before the procedure. You have been given the following additional information: Dental Pain Clindamycin Hydrochloride Oral capsule Aspirin Oral tablet (Electronically signed by Shawn Foreman MD 07/13/2016 9:34)
--- NOTE | 2016-07-13 09:35 | ED MAR SUMMARY ---
..... Medication Administration Record [facility] [address] [place], [place] [id number] Patient: HO FREEMAN Visit ID: [id number] 70y, F Weight: 79.3 kg Height/Length: 64 in BMI: 30 ALLERGIES: Amitriptyline HCl, Atenolol, Haldol, Penicillins, Sanctura, Zofran
--- NOTE | 2016-07-13 09:35 | ED MED RECONCILIATION SUMMARY ---
Patient: HO FREEMAN Medication Reconciliation Report [facility] VisitID: [id number] [address] [place] [address] 70y, F Registration Date/Time: 07/08/2016 Weight: 79.3 kg Height/Length: 64 in. BMI: 30.0 ALLERGIES: Amitriptyline HCl, Atenolol, Haldol, Penicillins, Sanctura, Zofran The patient's Home Medications are listed below: CONTINUE TAKING THE FOLLOWING MEDICATIONS: Acyclovir Oral 400 mg, q4hrs while awake Alendronate Sodium Oral 35mg week ASA Oral 81 mg, daily Levothyroxine Sodium Oral 25 mcg, daily Bernard Carbonate Oral (150 mg) 1 capsule, TID at mealtimes Lovastatin Oral 20mg , daily Omeprazole Oral 20 mg, daily Oxybutynin Chloride Oral 5 mg, 3x a day ROPINIRole HCl Oral 3 mg each hs Wellbutrin Oral 300 mg qAM The source(s) of the original Home Medication information: Not obtained. The following Medications were given to the patient in the Emergency Department: None. The following Medications were prescribed to the patient: Aspirin 325 mg (available over the counter): take 1 orally every 24 hours. Dispense thirty (30). No refills. -- Shawn Foreman MD Clindamycin 300 mg: take 1 capsule orally every 6 hours for 7 days. No refills. -- Shawn Foreman MD
--- NOTE | 2016-07-13 09:35 | ED DISCHARGE INSTRUCTIONS ---
Patient: HO FREEMAN General Instructions [facility] VisitID: [id number] [address] [place] [address] 70y, F Registration Date/Time: 07/08/2016 Mild dental pain (with facial swelling). INSTRUCTIONS Warnings: Further evaluation is necessary. GENERAL WARNINGS: Return or contact your physician immediately if your condition worsens or changes unexpectedly, if not improving as expected, or if other problems arise. Your Current Medications: CONTINUE TAKING THE FOLLOWING MEDICATIONS: Acyclovir Oral : 400 mg q4hrs while awake. Alendronate Sodium Oral : 35mg week. ASA Oral : 81 mg daily. Levothyroxine Sodium Oral : 25 mcg daily. Counce Carbonate Oral : Capsule 150 mg, 1 capsule TID at mealtimes. Lovastatin Oral : 20mg daily. Omeprazole Oral : 20 mg daily. Oxybutynin Chloride Oral : 5 mg 3x a day. ROPINIRole HCl Oral : 3 mg each hs. Wellbutrin Oral : 300 mg qAM. Prescription Medications: Clindamycin 300 mg: take 1 capsule orally every 6 hours for 7 days. No refills. OTC Medications: Aspirin 325 mg (available over the counter): take 1 orally every 24 hours. Dispense thirty (30). No refills. Follow-up: Follow up with your doctor in five days. Call for the next available appointment. Follow up with a dentist. Call for the next available appointment. Understanding of the discharge instructions verbalized by patient. ADDITIONAL INFORMATION Dental Pain A crack or cavity in the tooth, which exposes the sensitive inner area of the tooth can cause tooth pain. An infection in the gum or the root of the tooth can cause pain and swelling. The pain is often made worse by drinking hot or cold fluids, or biting on hard foods. Pain may spread from the tooth to the ear or jaw on the same side. Home Care: Avoid hot and cold foods and liquids since your tooth may be sensitive to temperature changes. If your tooth is chipped or cracked, or if there is a large open cavity, apply OIL OF CLOVES (available [id number] in drug stores) directly to the tooth to reduce pain. Some pharmacies carry an [id number]-[id number] "toothache kit." This contains a paste, which can be applied over the exposed tooth to decrease sensitivity. A cold pack on your jaw over the sore area may help reduce pain. You may use acetaminophen (Tylenol) or ibuprofen (Motrin, Advil) to control pain, unless another medicine was prescribed. [ NOTE: If you have chronic liver or kidney disease or ever had a stomach ulcer or GI bleeding, talk with your doctor before using these medicines.] If you have signs of an infection, an antibiotic will be given. Take it as directed. Follow-Up as directed with a dentist. Your pain may go away with the treatment given. However, only a dentist can fully evaluate and treat the cause and prevent the pain from coming back again. TOOTHACHE IS A SIGN OF DISEASE IN YOUR TOOTH AND SHOULD BE EXAMINED AND TREATED BY A DENTIST. Get Prompt Medical Attention if any of the following occur: Your face becomes swollen or red Pain worsens or spreads to the neck Fever over 100.4 F (38.0 C) Unusual drowsiness; headache or stiff neck; weakness or fainting Pus drains from the tooth Difficulty swallowing or breathing Clindamycin Hydrochloride Oral capsule What is this medicine? CLINDAMYCIN (KLIN da MYSmiley sin) is a lincosamide antibiotic. It is used to treat certain kinds of bacterial infections. It will not work for colds, flu, or other viral infections. How should I use this medicine? Take this medicine by mouth with a full glass of water. Follow the directions on the prescription label. You can take this medicine with food or on an empty stomach. If the medicine upsets your stomach, take it with food. Take your medicine at regular intervals. Do not take your medicine more often than directed. Take all of your medicine as directed even if you think your are better. Do not skip doses or stop your medicine early. Talk to your nursing surgical services director regarding the use of this medicine in children. Special care may be needed. What side effects may I notice from receiving this medicine? Side effects that you should report to your doctor or health rn patient care as soon as possible: allergic reactions like skin rash, itching or hives, swelling of the face, lips, or tongue dark urine pain on swallowing redness, blistering, peeling or loosening of the skin, including inside the mouth unusual bleeding or bruising unusually weak or tired yellowing of eyes or skin Side effects that usually do not require medical attention (report to your doctor or health rn patient care if they continue or are bothersome): diarrhea itching in the rectal or genital area joint pain nausea, vomiting stomach pain What may interact with this medicine? chloramphenicol erythromycin kaolin products What if I miss a dose? If you miss a dose, take it as soon as you can. If it is almost time for your next dose, take only that dose. Do not take double or extra doses. Where should I keep my medicine? Keep out of the reach of children. Store at room temperature between 20 and 25 degrees C (68 and 77 degrees F). Throw away any unused medicine after the expiration date. What should I tell my health care provider before I take this medicine? They need to know if you have any of these conditions: kidney disease liver disease stomach problems like colitis an unusual or allergic reaction to clindamycin, lincomycin, or other medicines, foods, dyes like tartrazine or preservatives or trying to get breast-feeding What should I watch for while using this medicine? Tell your doctor or healthcare professional if your symptoms do not start to get better or if they get worse. Do not treat diarrhea with over the counter products. Contact your doctor if you have diarrhea that lasts more than 2 days or if it is severe and watery. Aspirin Oral tablet What is this medicine? ASPIRIN ( pir in) is a pain reliever. It is used to treat mild pain and fever. This medicine is also used as directed by a doctor to prevent and to treat heart attacks, to prevent strokes, and to treat arthritis or inflammation. How should I use this medicine? Take this medicine by mouth with a glass of water. Follow the directions on the package or prescription label. You can take this medicine with or without food. If it upsets your stomach, take it with food. Do not take your medicine more often than directed. Talk to your nursing surgical services director regarding the use of this medicine in children. While this drug may be prescribed for children as young as 12 years of age for selected conditions, precautions do apply. Children and teenagers should not use this medicine to treat chicken pox or flu symptoms unless directed by a doctor. Patients over 65 years old may have a stronger reaction and need a smaller dose. What side effects may I notice from receiving this medicine? Side effects that you should report to your doctor or health rn patient care as soon as possible: allergic reactions like skin rash, itching or hives, swelling of the face, lips, or tongue breathing problems changes in hearing, ringing in the ears confusion general ill feeling or flu-like symptoms pain on swallowing redness, blistering, peeling or loosening of the skin, including inside the mouth or nose signs and symptoms of bleeding such as bloody or black, tarry stools; red or dark-brown urine; spitting up blood or brown material that looks like coffee grounds; red spots on the skin; unusual bruising or bleeding from the eye, gums, or nose trouble passing urine or change in the amount of urine unusually weak or tired yellowing of the eyes or skin Side effects that usually do not require medical attention (report to your doctor or health rn patient care if they continue or are bothersome): diarrhea or constipation nausea, vomiting stomach gas, heartburn What may interact with this medicine? Do not take this medicine with any of the following medications: cidofovir ketorolac probenecid This medicine may also interact with the following medications: alcohol alendronate bismuth subsalicylate flavocoxid herbal supplements like feverfew, garlic, hortencia, ginkgo biloba, horse chestnut medicines for diabetes or glaucoma like acetazolamide, methazolamide medicines for gout medicines that treat or prevent blood clots like enoxaparin, heparin, ticlopidine, warfarin other aspirin and aspirin-like medicines NSAIDs, medicines for pain and inflammation, like ibuprofen or naproxen pemetrexed sulfinpyrazone varicella live vaccine What if I miss a dose? If you are taking this medicine on a regular schedule and miss a dose, take it as soon as you can. If it is almost time for your next dose, take only that dose. Do not take double or extra doses. Where should I keep my medicine? Keep out of the reach of children. Store at room temperature between 15 and 30 degrees C (59 and 86 degrees F). Protect from heat and moisture. Do not use this medicine if it has a strong vinegar smell. Throw away any unused medicine after the expiration date. What should I tell my health care provider before I take this medicine? They need to know if you have any of these conditions: anemia asthma bleeding problems child with chickenpox, the flu, or other viral infection diabetes gout if you frequently drink alcohol containing drinks kidney disease liver disease low level of vitamin K lupus smoke tobacco stomach ulcers or other problems an unusual or allergic reaction to aspirin, tartrazine dye, other medicines, dyes, or preservatives or trying to get breast-feeding What should I watch for while using this medicine? If you are treating yourself for pain, tell your doctor or health rn patient care if the pain lasts more than 10 days, if it gets worse, or if there is a new or different kind of pain. Tell your doctor if you see redness or swelling. Also, check with your doctor if you have a fever that lasts for more than 3 days. Only take this medicine to prevent heart attacks or blood clotting if prescribed by your doctor or health rn patient care. Do not take aspirin or aspirin-like medicines with this medicine. Too much aspirin can be dangerous. Always read the labels carefully. This medicine can irritate your stomach or cause bleeding problems. Do not smoke cigarettes or drink alcohol while taking this medicine. Do not lie down for 30 minutes after taking this medicine to prevent irritation to your throat. If you are scheduled for any medical or dental procedure, tell your healthcare provider that you are taking this medicine. You may need to stop taking this medicine before the procedure. You have been given the following additional information: Dental Pain Clindamycin Hydrochloride Oral capsule Aspirin Oral tablet (Electronically signed by Shawn Foreman MD 07/13/2016 9:34)
== END 2016-07-08 21:07 | disposition home or self-care (01) ==
LOC: ED SRH 18:40
DX: K08.89 Other specified disorders of teeth and supporting structures (principal); R60.0 Localized edema; G20 Parkinson's disease; Z79.82 Long term (current) use of aspirin; Z79.899 Other long term (current) drug therapy; Z88.0 Allergy status to penicillin; Z88.5 Allergy status to narcotic agent; Z88.8 Allergy status to other drugs, medicaments and biological substances
CPT/HCPCS: 90100; 90616; 92235; 92530; 92610; 94001; 94060; 95059